=== PATIENT | male | born 1965 | race Caucasian/White ===

== ENCOUNTER 2021-03-11 13:47 | Emergency (ER) | payer BC ==
[~2021-03-11] VITALS: Ht 170.2 cm; Wt 102.3 kg
[2021-03-11 14:13] VITALS: TEMP 98.9
[2021-03-11 14:43] LABS: BASO % 0.5 % (0.0-2.0); EOS # 0.2 (0.0-0.7); EOS % 2.4 % (0-4.0); GRAN # 3.8 (1.4-6.5); GRAN % 59.8 % (42.2-75.2); HEMATOCRIT 49.7 % (42.0-52.0); HEMOGLOBIN 17.2 g/dl (13.5-18.0); LYMPH # 1.4 (1.2-3.4); LYMPH % 22.8 % (20.0-51.0); MEAN CELL VOLUME 86 fl (80.0-100.0); MEAN CORPUSCULAR HEMOGLOBIN 30 pg (27.0-31.0); MEAN CORPUSCULAR HGB CONC 35 g/dl (33.0-37.0); MEAN PLATELET VOLUME 10.5 fl (7.4-10.4); MONO # 0.9 (0.1-0.6); MONO % 14.2 % (1.7-9.3); PLATELET COUNT 159 K/mm3 (130-400); RED BLOOD COUNT 5.81 M/mm3 (4.20-5.60); REDCELL DISTRIBUTION WIDTH-CV 11.9 % (11.5-14.5)
[2021-03-11 14:51] LABS: LIPASE 53 U/L (23-300)
[2021-03-11 14:52] LABS: ALANINE AMINOTRANSFERASE 102 U/L (4-49); ALBUMIN 3.9 gm/dL (3.5-5.0); ALKALINE PHOSPHATASE 80 U/L (50-136); ANION GAP 9 mmol/L (7-16); AST,SGOT 92 U/L (15-37); BILIRUBIN,TOTAL 0.7 mg/dL (0.0-1.0); BLOOD UREA NITROGEN 15 mg/dL (9-20); CALCIUM 8.5 mg/dL (8.4-10.2); CARBON DIOXIDE 24 mmol/L (22-30); CHLORIDE 100 mmol/L (98-107); CREATININE, serum 0.65 (0.66-1.25); GLUCOSE 249 mg/dL (74-106); POTASSIUM 3.8 mmol/L (3.4-5.0); SODIUM 133 mmol/L (137-145); TOTAL PROTEIN 7.8 gm/dL (6.4-8.2)
[2021-03-11 15:05] LABS: TROPONIN-I < 0.012 ng/mL (0.000-0.035)
[2021-03-11] MEDS ORDERED: DOXYCYCLINE 10100 MG PO (16:46)
[2021-03-11 17:12] VITALS: BP 158/87; PULSE 69
== END 2021-03-11 17:12 | disposition home or self-care (01) ==
LOC: COL.ER 13:47
PROVIDERS: Emergency Medicine
DX: U07.1 COVID-19 (principal); F17.200 Nicotine dependence, unspecified, uncomplicated
CPT/HCPCS: J1885; J2405

== ENCOUNTER 2023-09-06 10:45 | Outpatient (RCR) | payer BC ==
[~2023-09-06 10:45] MED LIST: DOXYCYCLINE 10100 MG PO
== END 2023-09-09 | disposition still patient (30) ==
LOC: PT.GENESIS
DX: S43.081D Other subluxation of right shoulder joint, subsequent encounter (principal); X58.XXXD Exposure to other specified factors, subsequent encounter; Z98.890 Other specified postprocedural states

== ENCOUNTER 2023-10-08 10:45 | Outpatient (RCR) | payer BC | END 2023-10-10 | disposition home or self-care (01) | LOC: PT.GENESIS | DX: S43.081D Other subluxation of right shoulder joint, subsequent encounter (principal); Z98.890 Other specified postprocedural states ==

== ENCOUNTER 2023-11-07 10:45 | Outpatient (RCR) | payer BC | END 2023-11-08 | disposition home or self-care (01) | LOC: PT.GENESIS | DX: S43.081D Other subluxation of right shoulder joint, subsequent encounter (principal); Z98.890 Other specified postprocedural states; X58.XXXD Exposure to other specified factors, subsequent encounter ==